=== PATIENT | male | born 1945 | race Caucasian/White ===

== ENCOUNTER 2020-08-15 07:57 | Day surgery (SDC) | payer OTHER ==
[~2020-08-15 07:57] MED LIST: Lactated Ringers 1,000 ML IV SCH
[2020-08-15] MEDS ORDERED: Propofol 200 MG/20 ML SDV ONE ×2 (09:43→10:07)
[2020-08-15] MEDS ORDERED: fentaNYL 100 MCG/2 ML SDV ONE (09:43)
[2020-08-15 10:36] VITALS: BP 122/65; PULSE 53
--- NOTE | 2020-08-16 10:04 | OR ---
PREOPERATIVE DIAGNOSIS: History of colon polyps. POSTOPERATIVE DIAGNOSIS: History of colon polyps. PROCEDURE PERFORMED: Colonoscopy with polypectomy. COMPLICATIONS: None. SPECIMENS: None. ESTIMATED BLOOD LOSS: 5 mL. PROCEDURE IN DETAIL: This was done in the endoscopy suite. Sedation was given per Anesthesia. He was placed in left lateral position. First, a rectal exam was done and was normal. Scope was introduced into the rectum and slowly advanced to the rectum, sigmoid, descending, transverse, and ascending colon until the cecum was reached. Upon reaching the cecum, scope was slowly withdrawn looking at all mucosal surfaces on the way out. No mucosal abnormalities or polyps were noted except for polyps at 60 x2, 40 x1, and 10 x1. All were removed with combination of hot loop forceps and the biopsy forceps. Scope was then withdrawn the remainder of the way. FINAL DIAGNOSIS: Polyps at 60 x2, 40 cm, and 10 cm. BKD: 08/15/2020 10:23:05 MODL: 08/15/2020 17:21:34 /[id number]
== END 2020-08-15 15:00 | disposition home or self-care (01) ==
LOC: VM.SDS 07:57
PROVIDERS: ATTEND Surgery
DX: Z12.11 Encounter for screening for malignant neoplasm of colon (principal); D12.6 Benign neoplasm of colon, unspecified; I10 Essential (primary) hypertension; I48.91 Unspecified atrial fibrillation; I25.10 Atherosclerotic heart disease of native coronary artery without angina pectoris; E78.2 Mixed hyperlipidemia; D63.8 Anemia in other chronic diseases classified elsewhere; J45.40 Moderate persistent asthma, uncomplicated; N40.1 Benign prostatic hyperplasia with lower urinary tract symptoms; R39.16 Straining to void; R73.9 Hyperglycemia, unspecified; G89.29 Other chronic pain; N32.81 Overactive bladder; E66.09 Other obesity due to excess calories; Z68.31 Body mass index [BMI] 31.0-31.9, adult; Z79.899 Other long term (current) drug therapy; Z79.01 Long term (current) use of anticoagulants
CPT/HCPCS: 00811; 36415; 85610; J2704; J3010; J7120

== ENCOUNTER 2024-08-17 10:55 | Day surgery (SDC) | payer OTHER ==
[~2024-08-17 10:55] MED LIST changes: -Lactated Ringers 1,000 ML IV SCH; +Propofol 200 MG/20 ML SDV ONE; +fentaNYL 100 MCG/2 ML SDV ONE
[2024-08-17] MEDS: Lactated Ringers 1,000 ML IV SCH (11:12)
[2024-08-17] MEDS ORDERED: Ondansetron 4 MG/2 ML SDV IV PRN (11:12)
[2024-08-17 11:39] LABS: INR 1.1 (0.9-1.1); PROTHROMBIN TIME 11.9 SEC (9.6-12.0)
[2024-08-17 13:15] VITALS: BP 147/81; PULSE 66
== END 2024-08-17 14:01 | disposition home or self-care (01) ==
LOC: VM.SDS 10:55
PROVIDERS: ATTEND Surgery
DX: Z12.11 Encounter for screening for malignant neoplasm of colon (principal); D12.0 Benign neoplasm of cecum; D12.2 Benign neoplasm of ascending colon; D12.6 Benign neoplasm of colon, unspecified; E78.5 Hyperlipidemia, unspecified; I25.10 Atherosclerotic heart disease of native coronary artery without angina pectoris; I48.91 Unspecified atrial fibrillation; I10 Essential (primary) hypertension; Z79.899 Other long term (current) drug therapy; Z87.891 Personal history of nicotine dependence; Z86.0100 Personal history of colon polyps, unspecified
CPT/HCPCS: 00811; 36415; 85610; 99100; J2704; J3010; J7120